=== PATIENT | male | born 1980 | race African-American/Black ===

== ENCOUNTER 2016-04-17 09:09 | Emergency (ER) ==
[2016-04-17 09:14] VITALS: TEMP 99.5; BMI 27.1
[2016-04-17] MEDS ORDERED: SODIUM CHLORIDE 1,000 ML IV STA (09:25)
[2016-04-17] MEDS ORDERED: ZOFRAN 4 MG/2 ML IVP STA (09:31)
[2016-04-17] MEDS ORDERED: ANTIVERT PO STA (09:31)
--- NOTE | 2016-04-17 09:44 | ED.PDOC ---
General ED Provider: Dr. KRISTEN RILEY Chief Complaint: Respiratory Complaint Stated Complaint: Catie is a 35 year old male who comes to the ER with a 2 day history of Sinus conjestion, headache, dizziness for the past 2 days. He thinks he has a sinus infection. Time Seen by Physician: 09:30 Mode of Arrival: Walk-In Information Source: Patient Exam Limitations: No limitations Primary Care Provider: ERICH ART Nursing and Triage Documentation Reviewed and Agree: Yes Neurological Complaint Exam - Dizziness Complaint/Exam Last Known Well: 3 days ago Duration: constant Symptoms Are: Still present Timing: Constant Initial Severity: Moderate Current Severity: Moderate Character: Reports: Room spinning Aggravating: Reports: Headache, Position change Associated Signs and Symptoms: Reports: Nausea. Denies: Vomiting, Diaphoresis, Tinnitus, Chest pain, Short of air, Palpitations, Unsteady gait, GI blood loss, Visual changes, Decreased oral intake, Change in medication, Change in diet, OTC meds, Loss of balance Cardiac Risk Factors: Reports: Hypertension CVA Risk Factors: Reports: None Glascow Coma Scale (see protocol): 15 Nystagmus Present: No Gag Reflex Present: No Meningeal Signs Positive: No Focal Weakness: Present: None Focal Sensory Loss: Present: None Gait: Normal Aniyon-rn-Aima: Normal Findings Romberg Test Positive: No Babinski Sign: Negative Right, Negative Left Heel to Toe Normal: No [place]-Hallpike Test Positive: Yes Differential Diagnoses: BPPV, Labyrinthitis, Other (sinusitis ) Quality Indicator For Non-Traumatic Chest Pain/Syncope: EKG Performed Review of Systems - Review Of Systems Constitutional: Reports: Weakness, Loss of appetite Eyes: Reports: No symptoms Ears, Nose, Mouth, Throat: Reports: Nose discharge, Throat pain Respiratory: Reports: Cough Cardiac: Reports: Lightheadedness GI: Reports: No symptoms : Reports: No symptoms Musculoskeletal: Reports: No symptoms Skin: Reports: No symptoms Neurological: Reports: Headache Endocrine: Reports: No symptoms Hematologic/Lymphatic: Reports: No symptoms All Other Systems: Reviewed and Negative Past Medical History - Past Medical History Previously Healthy: Yes Endocrine: Reports: None Cardiovascular: Reports: Hypertension Respiratory: Reports: None Hematological: Reports: None Gastrointestinal: Reports: None Genitourinary: Reports: None Neuro/Psych: Reports: None Musculoskeletal: Reports: None Cancer: Reports: None - Surgical History General Surgical History: Reports: Unknown - Family History Family History: Reports: Unknown - Social History Smoking Status: Never smoker Hx Substance Use: No Alcohol Screening: None Physical Exam - Physical Exam Appearance: Ill-appearing, Well-nourished Ill-appearing: Moderate Pain Distress: Mild Eyes: ELLI, EOMI, Conjunctiva clear ENT: Ears normal, Oropharynx normal, Dry mucosa Neck: Supple Respiratory: Airway patent, Breath sounds clear, Breath sounds equal, Respirations nonlabored Cardiovascular: RRR, Pulses normal, No rub, No murmur GI/: Soft, Nontender, No masses, Bowel sounds normal, No Organomegaly Musculoskeletal: Normal strength, ROM intact, No edema, No calf tenderness Skin: Warm, Dry, Normal color Neurological: Sensation intact, Motor intact, Alert, Oriented Psychiatric: Anxious Interpretation - Radiology Interpretation Radiology Interpretation By: Radiologist Radiology Results: Positive Exam Interpreted: CT Scan (Minor Maxillary Sinus Mucoperiosteal Thickening. ) Critical Care Note - Critical Care Note Total Time (mins): 0 Course - Course Hematology/Chemistry: 04/17/16 09:45 04/17/16 09:45 Orders, Labs, Meds: Lab Review 04/17/16 09:45 WBC 5.31 RBC 5.70 Hgb 15.5 Hct 45.9 MCV 80.5 MCH 27.2 MCHC 33.8 RDW Coeff of Randy 13.2 Plt Count 243 Immature Gran % (Auto) 0.4 Neut % (Auto) 76.5 Lymph % (Auto) 9.6 L Nelson % (Auto) 7.2 Eos % (Auto) 5.5 Baso % (Auto) 0.8 Immature Gran # (Auto) 0.0 Neut # 4.1 Lymph # 0.5 L Nelson # 0.4 Eos # 0.3 Baso # 0.0 Sodium 139 Potassium 4.1 Chloride 101 Carbon Dioxide 27 Anion Gap 15.1 BUN 12 Creatinine 1.43 H Estimated GFR (MDRD) 67.00 BUN/Creatinine Ratio 8.39 Glucose 117 H Calcium 9.9 Total Bilirubin 0.76 AST 26 ALT 17 Alkaline Phosphatase 98 Total Creatine Kinase 752 CK-MB (CK-2) 1.8 CK-MB (CK-2) % 0.65615 Troponin I 0.0160 Total Protein 8.3 H Albumin 4.6 Globulin 3.7 Albumin/Globulin Ratio 1.24 Orders Category Date Time Status EKG-(ED ONLY) Stat CARDIO 04/17/16 09:41 Completed ED IV/MEDIPORT/POWERPORT .ONCE EMERGENCY 04/17/16 09:25 Active ED ORTHOSTATIC VITAL SIGNS .ONCE EMERGENCY 04/17/16 09:25 Active CBC W/ AUTO DIFF Stat LAB 04/17/16 09:45 Completed COMPREHENSIVE METABOLIC PANEL Stat LAB 04/17/16 09:45 Completed CREATINE KINASE Stat LAB 04/17/16 09:45 Completed TROPONIN I Stat LAB 04/17/16 09:45 Completed 0.9 % Sodium Chloride [Saline Flush] MEDS 04/17/16 09:25 Discontinued 1 syr IVF PRN PRN Amoxicillin/Potassium Clav [Augmentin 875-125 mg Tab] MEDS 04/17/16 10:20 Discontinued 1 tab PO ONCE STA Meclizine HCl [Antivert] MEDS 04/17/16 09:31 Discontinued 25 mg PO ONCE STA Methylprednisolone Sod Succ/Pf [Solu-Medrol 125 mg] MEDS 04/17/16 10:19 Discontinued 125 mg IVP ONCE STA Ondansetron HCl/Pf [Zofran 4 mg/2 ml] MEDS 04/17/16 09:31 Discontinued 4 mg IVP ONCE STA Sodium Chloride 0.9% [Sodium Chloride] 1,000 ml MEDS 04/17/16 09:25 Discontinued IV BOLUS CHEST, 2 VIEWS PA & LAT Stat RADS 04/17/16 09:[address] HEAD W/O CONTRAST Stat RADS 04/17/16 09:[address] SINUSES W/O CONTRAST Stat RADS 04/17/16 09:31 Completed Medications Discontinued Medications Generic Name Dose Route Start Last Admin Trade Name Freq PRN Reason Stop Dose Admin Amoxicillin/Clavulanate Potassium 1 tab 04/17/16 10:20 04/17/16 10:34 Augmentin 875-125 Mg Tab PO 04/17/16 10:21 1 tab ONCE STA Administration Sodium Chloride 1,000 mls @ 1,000 mls/hr 04/17/16 09:25 04/17/16 10:00 Sodium Chloride IV 04/17/16 10:24 1,000 mls/hr BOLUS STA Administration Meclizine HCl 25 mg 04/17/16 09:31 04/17/16 10:06 Antivert PO 04/17/16 09:32 25 mg ONCE STA Administration Methylprednisolone Sodium Succinate 125 mg 04/17/16 10:19 04/17/16 10:33 Solu-Medrol 125 Mg IVP 04/17/16 10:20 125 mg ONCE STA Administration Ondansetron HCl 4 mg 04/17/16 09:31 04/17/16 10:05 Zofran 4 Mg/2 Ml IVP 04/17/16 09:32 4 mg ONCE STA Administration Sodium Chloride 1 syr 04/17/16 09:25 04/17/16 10:00 Saline Flush IVF 1 syr PRN PRN Administration To flush IV Vital Signs: Temp Pulse Resp BP Pulse Ox 04/17/16 11:20 88 16 125/82 97 04/17/16 10:21 88 146/99 H 04/17/16 10:20 84 129/90 04/17/16 09:09 99.5 F 102 H 20 138/91 H 97 Departure - Departure Time of Disposition: 11:20 Disposition: HOME SELF-CARE Discharge Problem: Vertigo Sinusitis Qualifiers: Sinusitis location: frontal Chronicity: acute Recurrence: non-recurrent Qualifier Code: (J01.10) Acute frontal sinusitis, unspecified Instructions: Sinusitis (ED) Condition: Fair Pt referred to PMD for follow-up: Yes Additional Instructions: Follow up with PCP in 3 days Take Medications as prescribed Prescriptions: Amoxicillin/Potassium Clav [Augmentin 500-125 mg Tab] 1 tab PO Q8HR #30 tablet Meclizine HCl [Antivert] 25 mg PO TID PRN #15 tablet PRN Reason: Dizziness Allergies/Adverse Reactions: Allergies No Known Allergies Allergy (Verified 04/17/16 09:14) Home Medications: Ambulatory Orders Amoxicillin/Potassium Clav [Augmentin 500-125 mg Tab] 1 tab PO Q8HR #30 tablet 04/17/16 Meclizine HCl [Antivert] 25 mg PO TID PRN #15 tablet 04/17/16 Disposition Discussed With: Patient
[2016-04-17 09:56] LABS: BASOPHILS % (AUTO) 0.8 % (0.0-3.0); EOSINOPHILS # (AUTO) 0.3 K/ul (0.0-0.7); EOSINOPHILS % (AUTO) 5.5 % (0.0-7.0); HEMATOCRIT 45.9 % (42.0-52.0); HEMOGLOBIN 15.5 g/dl (14.0-18.0); IMMATURE GRANULOCYTE % (AUTO) 0.4 % (0.0-5.0); LYMPHOCYTES # (AUTO) 0.5 K/uL (0.60-3.4); LYMPHOCYTES % (AUTO) 9.6 (10.0-50.0); MEAN CORPUSCULAR HEMOGLOBIN 27.2 pg (27.0-31.0); MEAN CORPUSCULAR HGB CONC 33.8 (31.8-35.4); MEAN CORPUSCULAR VOLUME 80.5 fl (80.0-94.0); MONOCYTES # (AUTO) 0.4 K/uL (0.4-2.0); MONOCYTES % (AUTO) 7.2 (0-10); NEUTROPHILS # (AUTO) 4.1 K/ul (2.0-6.9); NEUTROPHILS % (AUTO) 76.5; PLATELET COUNT 243 10^3/uL (140-440); WHITE BLOOD COUNT 5.31 K/ul (4.2-10.2)
--- NOTE | 2016-04-17 09:59 | CT ---
EXAM: CT head without contrast HISTORY: Headache COMPARISON: None. TECHNIQUE: Helical axial CT of the head was performed without contrast. Coronal and sagittal reconst ructions were performed. FINDINGS: There is no hemorrhage, mass, midline shift, abnormal extra-axial fluid collection, hydrocephalus or evolving ischemia. The humphrey-white matter junction is well maintained. Brain parenchyma ventricles and sulci are normal. There are no acute calvarial lesions. Visualized orbits and globes are unremarkable. The mastoid a ir cells demonstrate no significant soft tissue opacification. The visualized paranasal sinuses show no air-fluid levels. IMPRESSION: No acute intracranial abnormality.
--- NOTE | 2016-04-17 10:00 | CT ---
Exam: CT sinuses without contrast History: Sinus pain mostly on the right Technique: [address] sinuses with multiplanar reformations FINDINGS: Paranasal sinuses are mostly clear. Minor mucoperiosteal thickening in the floor the rig ht maxillary sinus. Nasal airway shows some mucosal hypertrophy. Minor mucosal thickening narrowing the right draining sinus ostia. Left draining sinus ostia is clear. Orbits are normal. Zygoma and nasal bones are intact. Mastoid air cells and middle ears are clear. No significant soft tissue a bnormalities are seen. Impression: 1. Minor right maxillary sinus mucoperiosteal thickening. There is no sinus fluid.
--- NOTE | 2016-04-17 10:00 | DI ---
EXAM: Chest two views HISTORY: Cough FINDINGS: Normal cardiac and mediastinal contours. Normal pulmonary vasculature. Lungs are clear. No significant abnormality of the bony thorax. IMPRESSION: Chest radiograph within normal limits.
[2016-04-17] MEDS ORDERED: SOLU-MEDROL 125 MG IVP STA (10:19)
[2016-04-17] MEDS ORDERED: AUGMENTIN 875-125 MG TAB PO STA (10:20)
[2016-04-17 10:31] LABS: ALBUMIN 4.6 g/dL (3.4-5.0); ALBUMIN/GLOBULIN RATIO 1.24; ANION GAP 15.1; BILIRUBIN,TOTAL 0.76 mg/dL (0.00-1.20); BUN/CREATININE RATIO 8.39; CALCIUM 9.9 mg/dL (8.2-10.2); CREATININE 1.43 mg/dL (0.60-1.10); POTASSIUM 4.1 mmol/L (3.5-5.1); TOTAL PROTEIN 8.3 g/dL (6.4-8.2); TROPONIN I 0.016 ng/ml (0.0000-0.4000)
[2016-04-17 10:56] LABS: CREATINE KINASE MB 1.8 ng/ml (0.0-3.6)
[2016-04-17 11:37] VITALS: BP 125/82
== END 2016-04-17 11:30 | disposition home or self-care (01) ==
LOC: ED 09:09
DX: J01.10 Acute frontal sinusitis, unspecified (principal); R42 Dizziness and giddiness
CPT/HCPCS: 36415; 80053; 82550; 82553; 84484; 85025; 93005; 93010; 96361; 96374; 96375; 99283

== ENCOUNTER 2016-06-23 20:29 | Emergency (ER) ==
[2016-06-23 20:33] VITALS: BP 154/93; TEMP 98; BMI 27.0
--- NOTE | 2016-06-23 20:45 | ED.PDOC ---
General ED Provider: Dr. AUBREY WALTON Chief Complaint: Urinary Problem Stated Complaint: Increase frequency of urination 10-15 times today, had h/o prostatitis, but this time no pain. Time Seen by Physician: 20:42 Mode of Arrival: Walk-In Information Source: Patient Primary Care Provider: ERICH ART Nursing and Triage Documentation Reviewed and Agree: Yes Complaint Exam - Complaint/Exam Patient Complains of: Reports: Dysuria Symptoms Are: Still present Timing: Constant Initial Severity: Mild Current Severity: Mild Location of Pain: Reports: None Aggravating: Reports: None Alleviating: Reports: None Associated Signs and Symptoms: Reports: Increased urine frequency. Denies: Diaphoresis, Back pain, Fever, Hematuria, Dysuria, Constipation, Blood in stool , Rectal pain, Appetite change, Nausea, Vomiting, Penile swelling, Penile discharge, Decreased urine output, Increased thirst, Decreased activity, Lethargy, Scrotal pain, Scrotal swelling, Abdominal Pain Related History: Reports: Similar episode Testicular Torsion Risk Factors: Reports: None Surgical Obstruction Risk Factors: Reports: None Related Surgical History: Reports: None Abdominal Findings: Present: None Differential Diagnoses: UTI Review of Systems - Review Of Systems Constitutional: Reports: No symptoms Eyes: Reports: No symptoms Ears, Nose, Mouth, Throat: Reports: No symptoms Respiratory: Reports: No symptoms Cardiac: Reports: No symptoms GI: Reports: No symptoms : Reports: Burning, Dysuria, Frequency Musculoskeletal: Reports: No symptoms Skin: Reports: No symptoms Neurological: Reports: No symptoms Endocrine: Reports: No symptoms Hematologic/Lymphatic: Reports: No symptoms All Other Systems: Reviewed and Negative Past Medical History - Past Medical History Previously Healthy: Yes Endocrine: Reports: None Cardiovascular: Reports: Hypertension Respiratory: Reports: None Hematological: Reports: None Gastrointestinal: Reports: None Genitourinary: Reports: Other (prostatitis) Neuro/Psych: Reports: None Musculoskeletal: Reports: None Cancer: Reports: None - Surgical History General Surgical History: Reports: Other (rt bicep repair.) - Family History Family History: Reports: Unknown - Social History Smoking Status: Never smoker Hx Substance Use: No Alcohol Screening: None Physical Exam - Physical Exam Appearance: Well-appearing, No pain distress, Well-nourished Eyes: ELLI, EOMI, Conjunctiva clear ENT: Ears normal, Nose normal, Oropharynx normal Respiratory: Airway patent, Breath sounds clear, Breath sounds equal, Respirations nonlabored Cardiovascular: RRR, Pulses normal, No rub, No murmur GI/: Soft, Nontender, No masses, Bowel sounds normal, No Organomegaly Musculoskeletal: Normal strength, ROM intact, No edema, No calf tenderness Skin: Warm, Dry, Normal color Neurological: Sensation intact, Motor intact, Reflexes intact, Cranial nerves intact, Alert, Oriented Psychiatric: Affect appropriate, Mood appropriate Critical Care Note - Critical Care Note Total Time (mins): 0 Course - Course Hematology/Chemistry: 06/23/16 20:48 06/23/16 20:48 Orders, Labs, Meds: Lab Review 06/23/16 06/23/16 20:40 20:48 WBC 5.30 RBC 5.00 Hgb 13.7 L Hct 39.8 L MCV 79.6 L MCH 27.4 MCHC 34.4 RDW Coeff of Randy 13.3 Plt Count 250 Immature Gran % (Auto) 0.4 Neut % (Auto) 67.1 Lymph % (Auto) 21.3 [place] % (Auto) 8.9 Eos % (Auto) 1.7 Baso % (Auto) 0.6 Immature Gran # (Auto) 0.0 Neut # 3.6 Lymph # 1.1 [place] # 0.5 Eos # 0.1 Baso # 0.0 Sodium 139 Potassium 3.6 Chloride 105 Carbon Dioxide 25 Anion Gap 12.6 BUN 13 Creatinine 1.11 H Estimated GFR (MDRD) 90.00 BUN/Creatinine Ratio 11.71 Glucose 122 H Calcium 9.6 Total Bilirubin 0.42 AST 21 ALT 20 Alkaline Phosphatase 67 Total Protein 7.5 Albumin 4.1 Globulin 3.4 Albumin/Globulin Ratio 1.21 Urine Color Yellow Urine Clarity Clear Urine pH 7.0 Ur Specific [place] 1.020 Urine Protein Negative Urine Glucose (UA) Negative Urine Ketones Negative Urine Blood Trace-intact Urine Nitrite Negative Urine Bilirubin Negative Urine Urobilinogen 0.2 Ur Leukocyte Esterase Negative Urine Microscopic RBC 0-2 Ur Squamous Epith Cells Not present Amorphous Sediment 1+ Urine Bacteria Trace Orders Category Date Time Status CBC W/ AUTO DIFF Stat LAB 06/23/16 20:48 Completed CMP [COMPREHENSIVE METABOLIC PANEL] Stat LAB 06/23/16 20:48 Completed UA [URINALYSIS C & S IF INDICATED] Stat LAB 06/23/16 20:40 Completed Vital Signs: Temp Pulse Resp BP Pulse Ox 06/23/16 20:29 98.0 F 84 18 154/93 H 97 Departure - Departure Time of Disposition: 21:27 Disposition: HOME SELF-CARE Discharge Problem: Urinary symptoms Instructions: Polyuria (ED) Condition: Stable Pt referred to PMD for follow-up: Yes Additional Instructions: Increase hydration needs evelaution for the dm f/u at [facility] Prescriptions: Doxycycline Hyclate 100 mg PO Q12HR #10 capsule Allergies/Adverse Reactions: Allergies No Known Allergies Allergy (Verified 06/23/16 20:34) Home Medications: Ambulatory Orders Doxycycline Hyclate 100 mg PO Q12HR #10 capsule 06/23/16 Disposition Discussed With: Patient
[2016-06-23 20:49] LABS: BASOPHILS % (AUTO) 0.6 % (0.0-3.0); EOSINOPHILS # (AUTO) 0.1 K/ul (0.0-0.7); EOSINOPHILS % (AUTO) 1.7 % (0.0-7.0); HEMATOCRIT 39.8 % (42.0-52.0); HEMOGLOBIN 13.7 g/dl (14.0-18.0); IMMATURE GRANULOCYTE % (AUTO) 0.4 % (0.0-5.0); LYMPHOCYTES # (AUTO) 1.1 K/uL (0.60-3.4); LYMPHOCYTES % (AUTO) 21.3 (10.0-50.0); MEAN CORPUSCULAR HEMOGLOBIN 27.4 pg (27.0-31.0); MEAN CORPUSCULAR HGB CONC 34.4 (31.8-35.4); MEAN CORPUSCULAR VOLUME 79.6 fl (80.0-94.0); MONOCYTES # (AUTO) 0.5 K/uL (0.4-2.0); MONOCYTES % (AUTO) 8.9 (0-10); NEUTROPHILS # (AUTO) 3.6 K/ul (2.0-6.9); NEUTROPHILS % (AUTO) 67.1; PLATELET COUNT 250 10^3/uL (140-440)
[2016-06-23 20:51] LABS: BILIRUBIN,URINE Negative (NEGATIVE); KETONES,URINE Negative (NEGATIVE); LEUKOCYTE ESTERASE ,URINE Negative (NEGATIVE); NITRITE,URINE Negative (NEGATIVE); PROTEIN,URINE Negative (NEGATIVE); URINE, BLOOD Trace-intact (NEGATIVE)
[2016-06-23 20:56] LABS: ADD URINE MICROSCOPIC YES; BACTERIA,URINE TRACE (NOT PRESENT)
[2016-06-23 21:08] LABS: ALBUMIN 4.1 g/dL (3.4-5.0); ALBUMIN/GLOBULIN RATIO 1.21; ANION GAP 12.6; BILIRUBIN,TOTAL 0.42 mg/dL (0.00-1.20); BUN/CREATININE RATIO 11.71; CALCIUM 9.6 mg/dL (8.2-10.2); CREATININE 1.11 mg/dL (0.60-1.10); POTASSIUM 3.6 mmol/L (3.5-5.1); TOTAL PROTEIN 7.5 g/dL (6.4-8.2)
== END 2016-06-23 21:40 | disposition home or self-care (01) ==
LOC: ED 20:29
DX: R35.0 Frequency of micturition (principal); R30.0 Dysuria
CPT/HCPCS: 36415; 80053; 81001; 85025; 99283

== ENCOUNTER 2016-11-11 22:13 | Emergency (ER) ==
[2016-11-11 22:20] VITALS: TEMP 97.5; BMI 26.4
[2016-11-11] MEDS ORDERED: DEMEROL 50 MG/ML SYRINGE IM STA (22:27)
[2016-11-11] MEDS ORDERED: AMOXIL PO STA (22:27)
[2016-11-11] MEDS ORDERED: TORADOL IM STA (22:27)
[2016-11-11] MEDS ORDERED: PHENERGAN 25 MG/ML VIAL IM STA (22:27)
--- NOTE | 2016-11-11 22:33 | ED.PDOC ---
General ED Provider: Dr. KRISTEN RILEY Chief Complaint: Tooth Problem Stated Complaint: Patient states he has been having dental pain for two hours. Severe in intenisty, aching and throbing. He was told that he cannot see his dentist for 2 weeks Time Seen by Physician: 22:30 Mode of Arrival: Walk-In Information Source: Patient Exam Limitations: No limitations Primary Care Provider: ERICH ART Nursing and Triage Documentation Reviewed and Agree: Yes EENT Complaint Exam - Dental/Oral Complaint/Exam Mechanism of Injury: No known trauma Onset/Duration: 2 hours Symptoms Are: Still present Timing: Constant Initial Severity: Severe Current Severity: Severe Location: Right lower jaw pain Character: Reports: Aching, Throbbing Aggravating: Reports: Heat, Cold, Chewing Alleviating: Reports: None Associated Signs and Symptoms: Reports: Swelling (right neck ) Related History: Reports: Similar episode Cardiac Risk Factors: Reports: None Dental/Oral Surgical History: Reports: Third Molar Extractions Tooth Findings: Present: Gross decay, Gross caries, Dental fracture Cervical Lymphadenopathy Present: Yes Facial Swelling Present: No Bleeding Present: No Oropharynx Findings: Absent: Clots, Active bleeding Septal Hematoma: No Foreign Body Present: No Dysphagia Present: No Drooling Present: No Asymmetrical Tonsillar Swelling Present: No Uvula Midline: No [place]-tonsillar Fluctuence: No Trismus Present: No Palatal Petechiae Present: No Scarlatinaform Rash Present: No Teeth Picture: 1 - Fracture and decay 2 - extracted Review of Systems - Review Of Systems Constitutional: Reports: No symptoms Eyes: Reports: No symptoms Ears, Nose, Mouth, Throat: Reports: Mouth pain, Mouth swelling Respiratory: Reports: No symptoms Cardiac: Reports: No symptoms GI: Reports: No symptoms : Reports: No symptoms Musculoskeletal: Reports: No symptoms Skin: Reports: No symptoms Neurological: Reports: No symptoms Endocrine: Reports: No symptoms Hematologic/Lymphatic: Reports: No symptoms All Other Systems: Reviewed and Negative Past Medical History - Past Medical History Previously Healthy: Yes Endocrine: Reports: None Cardiovascular: Reports: Hypertension Respiratory: Reports: None Hematological: Reports: None Gastrointestinal: Reports: None Genitourinary: Reports: Other (prostatitis) Neuro/Psych: Reports: None Musculoskeletal: Reports: None Cancer: Reports: None - Surgical History General Surgical History: Reports: Other (rt bicep repair.) - Family History Family History: Reports: Unknown - Social History Smoking Status: Never smoker Hx Substance Use: No Alcohol Screening: Occasionally - Immunizations Tetanus Shot up to Date: Yes Physical Exam - Physical Exam Appearance: No pain distress Ill-appearing: Moderate Pain Distress: Severe Eyes: ELLI, EOMI, Conjunctiva clear ENT: Ears normal, Nose normal, Oropharynx normal Neck: Supple Respiratory: Airway patent, Breath sounds clear, Breath sounds equal, Respirations nonlabored Cardiovascular: RRR, Pulses normal, No rub, No murmur GI/: Soft, Nontender, No masses, Bowel sounds normal, No Organomegaly Musculoskeletal: Normal strength, ROM intact, No edema, No calf tenderness Skin: Warm, Dry, Normal color Neurological: Sensation intact, Motor intact, Reflexes intact, Cranial nerves intact, Alert, Oriented Psychiatric: Affect appropriate, Mood appropriate Critical Care Note - Critical Care Note Total Time (mins): 0 Course - Course Orders, Labs, Meds: Orders Category Date Time Status Amoxicillin [Amoxil] MEDS 11/11/16 22:27 Stat 500 mg PO ONCE STA Ketorolac Tromethamine [Toradol] MEDS 11/11/16 22:27 Stat 60 mg IM ONCE STA Meperidine HCl/Pf [Demerol 50 mg/ml Syringe] MEDS 11/11/16 22:27 Stat 50 mg IM ONCE STA Promethazine HCl [Phenergan 25 mg/ml Vial] MEDS 11/11/16 22:27 Stat 25 mg IM ONCE STA Medications Generic Name Dose Route Start Last Admin Trade Name Freq PRN Reason Stop Dose Admin Amoxicillin 500 mg 11/11/16 22:27 Amoxil PO 11/11/16 22:28 ONCE STA Ketorolac Tromethamine 60 mg 11/11/16 22:27 Toradol IM 11/11/16 22:28 ONCE STA Vital Signs: Temp Pulse Resp BP Pulse Ox 11/11/16 22:14 97.5 F L 71 20 180/116 H 97 Departure - Departure Time of Disposition: 22:44 Disposition: HOME SELF-CARE Discharge Problem: Toothache, Dental abscess, Elevated blood pressure reading Instructions: Dental Abscess (ED) Condition: Fair Pt referred to PMD for follow-up: Yes Additional Instructions: Follow up with your dentist in 3 days Take medications as prescribed. Prescriptions: Hydrocodone/Acetaminophen [Anderson 5-325 Tablet] 1 tab PO Q6HR PRN #12 tablet PRN Reason: PAIN Amoxicillin [Amoxil] 500 mg PO TID #30 capsule Ibuprofen [Motrin] 600 mg PO Q6H PRN #30 tablet PRN Reason: Analgesia Allergies/Adverse Reactions: Allergies No Known Allergies Allergy (Verified 11/11/16 22:20) Home Medications: Ambulatory Orders Doxycycline Hyclate 100 mg PO Q12HR #10 capsule 06/23/16 Amoxicillin [Amoxil] 500 mg PO TID #30 capsule 11/11/16 Hydrocodone/Acetaminophen [Anderson 5-325 Tablet] 1 tab PO Q6HR PRN #12 tablet Ibuprofen [Motrin] 600 mg PO Q6H PRN #30 tablet 11/11/16 Disposition Discussed With: Patient
[2016-11-11] MEDS ORDERED: ED AFTER HOURS SUPPLY MED SENT HOME PO ONE (22:51)
[2016-11-11 23:02] VITALS: BP 175/101
== END 2016-11-12 00:15 | disposition home or self-care (01) ==
LOC: ED 22:13
DX: K04.7 Periapical abscess without sinus (principal); I10 Essential (primary) hypertension
CPT/HCPCS: 96372; 99283

== ENCOUNTER 2017-05-30 21:35 | Emergency (ER) | payer OTHER ==
[2017-05-30] MEDS ORDERED: LOPRESSOR PO STA (21:49)
[2017-05-30] MEDS ORDERED: PROCARDIA XL PO STA (21:49)
[2017-05-30 21:56] VITALS: BP 161/101; TEMP 100.3; BMI 25.6
--- NOTE | 2017-05-30 22:41 | CT ---
EXAM: CT head without contrast 05/30/2017. Sagittal and coronal reformatted images obtained HISTORY: Dizziness COMPARISON: 04/17/2016 FINDINGS: There is no evidence of intracranial hemorrhage. The midline is maintained. There is no h ydrocephalus. Mild small vessel ischemic change. No cerebellar tonsillar ectopia. Evaluation of th e calvarium shows no fracture. The mastoid air cells are normally pneumatized. IMPRESSION: No acute intracranial abnormality.
--- NOTE | 2017-05-30 23:42 | ED.PDOC ---
General ED Provider: Dr. CASSANDRA WAGNER-ER Chief Complaint: Dizziness Stated Complaint: her bp is up ----i have a sinus infection Time Seen by Physician: 21:50 Mode of Arrival: Walk-In Information Source: Patient Exam Limitations: No limitations Nursing and Triage Documentation Reviewed and Agree: Yes Reviewed sepsis parameters & appropriate labs ordered?: Yes System Inflammatory Response Syndrome: Not Applicable Sepsis Protocol: For patient's 13 years and over: Temp is 96.8 and below OR 101 and greater Pulse >90 BPM Resp >20/minute Acutely Altered Mental Status Are patient's symptoms suggestive of a new infection, such as: -Pneumonia -Skin, Soft Tissue -Endocarditis -UTI -Bone, Joint Infection -Implantable Device -Acute Abdominal Infection -Wound Infection -Meningitis -Blood Stream Catheter Infection -Unknown Cardiovascular Complaint Exam - Hypertension Complaint/Exam Onset/Duration: 3 days Symptoms Are: Still present Timing: Constant Aggravating: Reports: None Alleviating: Reports: None Associated Signs and Symptoms: Denies: Chest pain, Vision changes, Anxiety, Recent stress, Headache, Numbness, Tingling, Dizziness, Short of air, Swelling Related Surgical History: Reports: None Cardiac Risk Factors: Reports: None Recent Change in Medications: No A/V [place]: No Papilledema Present: No JVD Present: No Carotid Bruit Present: No Femoral Pulses Bounding: Yes Differential Diagnoses: Hypertension, Other Quality Indicator For Non-Traumatic Chest Pain/Syncope: EKG Performed Review of Systems - Review Of Systems Constitutional: Reports: Chills, Fever Eyes: Reports: No symptoms Ears, Nose, Mouth, Throat: Reports: Nose discharge Respiratory: Reports: No symptoms Cardiac: Reports: No symptoms GI: Reports: No symptoms : Reports: No symptoms Musculoskeletal: Reports: No symptoms Skin: Reports: No symptoms Neurological: Reports: No symptoms Endocrine: Reports: No symptoms Hematologic/Lymphatic: Reports: No symptoms All Other Systems: Reviewed and Negative Past Medical History - Past Medical History Previously Healthy: Yes Endocrine: Reports: None Cardiovascular: Reports: Hypertension Respiratory: Reports: None Hematological: Reports: None Gastrointestinal: Reports: None Genitourinary: Reports: Other (prostatitis) Neuro/Psych: Reports: None Musculoskeletal: Reports: None Cancer: Reports: None - Surgical History General Surgical History: Reports: Other (rt bicep repair.) - Family History Family History: Reports: Unknown - Social History Smoking Status: Never smoker Hx Substance Use: No Alcohol Screening: None - Immunizations Tetanus Shot up to Date: Yes Physical Exam - Physical Exam Appearance: Well-appearing, No pain distress, Well-nourished Eyes: ELLI, EOMI, Conjunctiva clear ENT: Rhinorrhea Neck: Supple Respiratory: Airway patent Cardiovascular: RRR, Pulses normal, No rub, No murmur GI/: Soft, Nontender, No masses, Bowel sounds normal, No Organomegaly Musculoskeletal: Normal strength, ROM intact, No edema, No calf tenderness Skin: Warm Neurological: Sensation intact Psychiatric: Affect appropriate, Mood appropriate Interpretation - Radiology Interpretation Radiology Interpretation By: Radiologist Radiology Results: Negative Exam Interpreted: CT Scan - EKG Interpretation Time of EKG #1: 23:41 Rate: Normal Rhythm: Sinus Ectopy: None [place]: NL ST Segment: Normal Interpretation: nsr Re-Evaluation - Re-Evaluation Time of Re-Evaluation: 23:42 Status: Improved (130/80) Vital Signs Stable: Yes Pain Level: 0 Appearance: NAD Lungs: Clear Skin: Warm and Dry Neuro: Alert and Oriented X3 CV: RRR Critical Care Note - Critical Care Note Total Time (mins): 0 Course - Course Hematology/Chemistry: 05/30/17 22:15 05/30/17 22:15 Orders, Labs, Meds: Lab Review 05/30/17 05/30/17 05/30/17 22:10 22:10 22:15 WBC 5.01 RBC 5.24 Hgb 14.4 Hct 42.2 MCV 80.5 MCH 27.5 MCHC 34.1 RDW Coeff of Randy 13.5 Plt Count 211 Immature Gran % (Auto) 0.4 Neut % (Auto) 61.6 Lymph % (Auto) 22.6 [place] % (Auto) 11.0 H Eos % (Auto) 3.6 Baso % (Auto) 0.8 Immature Gran # (Auto) 0.0 Neut # (Auto) 3.1 Lymph # (Auto) 1.1 [place] # (Auto) 0.6 Eos # (Auto) 0.2 Baso # (Auto) 0.0 Sodium Potassium Chloride Carbon Dioxide Anion Gap BUN Creatinine Estimated GFR (MDRD) BUN/Creatinine Ratio Glucose Calcium Total Bilirubin AST ALT Alkaline Phosphatase Total Creatine Kinase CK-MB (CK-2) CK-MB (CK-2) % Troponin I Total Protein Albumin Globulin Albumin/Globulin Ratio TSH Free T4 Urine Color Yellow Urine Clarity Slightly Urine pH 6.0 Ur Specific [place] 1.025 Urine Protein Negative Urine Glucose (UA) Negative Urine Ketones Trace Urine Blood Trace-lysed Urine Nitrite Negative Urine Bilirubin Negative Urine Urobilinogen 0.2 Ur Leukocyte Esterase 1+ Urine Microscopic RBC 0-2 Urine Microscopic WBC 10-20 Ur Squamous Epith Cells 0-2 Urine Opiates Screen Negative Ur Oxycodone Screen Negative Urine Methadone Screen Negative Ur Propoxyphene Screen Negative Ur Barbiturates Screen Negative U Tricyclic Antidepress Negative Ur Phencyclidine Scrn Negative Ur Amphetamine Screen Negative U Methamphetamines Scrn Negative U Benzodiazepines Scrn Negative Urine Cocaine Screen Negative U Cannabinoids Screen Negative 05/30/17 22:15 WBC RBC Hgb Hct MCV MCH MCHC RDW Coeff of Randy Plt Count Immature Gran % (Auto) Neut % (Auto) Lymph % (Auto) [place] % (Auto) Eos % (Auto) Baso % (Auto) Immature Gran # (Auto) Neut # (Auto) Lymph # (Auto) [place] # (Auto) Eos # (Auto) Baso # (Auto) Sodium 140 Potassium 4.0 Chloride 102 Carbon Dioxide 26 Anion Gap 16.0 BUN 13 Creatinine 1.21 H Estimated GFR (MDRD) 81.00 BUN/Creatinine Ratio 10.74 Glucose 93 Calcium 9.5 Total Bilirubin 0.4 AST 16 ALT 15 Alkaline Phosphatase 91 Total Creatine Kinase 251 CK-MB (CK-2) 1.3 CK-MB (CK-2) % 0.67957 Troponin I < 0.0100 Total Protein 7.9 Albumin 3.9 Globulin 4.0 Albumin/Globulin Ratio 0.98 TSH 0.992 Free T4 0.96 Urine Color Urine Clarity Urine pH Ur Specific [place] Urine Protein Urine Glucose (UA) Urine Ketones Urine Blood Urine Nitrite Urine Bilirubin Urine Urobilinogen Ur Leukocyte Esterase Urine Microscopic RBC Urine Microscopic WBC Ur Squamous Epith Cells Urine Opiates Screen Ur Oxycodone Screen Urine Methadone Screen Ur Propoxyphene Screen Ur Barbiturates Screen U Tricyclic Antidepress Ur Phencyclidine Scrn Ur Amphetamine Screen U Methamphetamines Scrn U Benzodiazepines Scrn Urine Cocaine Screen U Cannabinoids Screen Orders Category Date Time Status EKG-(ED ONLY) Stat CARDIO 05/30/17 21:36 Completed Devulcanizer Loader [ED MOTO MIX OPERATOR APPLIED] .ONCE EMERGENCY 05/30/17 21:40 Active CBC W/ AUTO DIFF Stat LAB 05/30/17 22:15 Completed COMPREHENSIVE METABOLIC PANEL Stat LAB 05/30/17 22:15 Completed CREATINE KINASE Stat LAB 05/30/17 22:15 Completed FREE T4 (FREE THYROXINE) Stat LAB 05/30/17 22:15 Completed THYROID STIMULATING HORMONE Stat LAB 05/30/17 22:15 Completed TROPONIN I Stat LAB 05/30/17 22:15 Completed URINALYSIS C & S IF INDICATED Stat LAB 05/30/17 22:10 Completed URINE CULTURE Stat LAB 05/30/17 22:45 Received URINE DRUG SCREEN (RAPID FOR ED) [DRUG SCREEN, URINE, LAB 05/30/17 22:10 Completed RAPID] Stat Metoprolol Tartrate [Lopressor] MEDS 05/30/17 21:49 Discontinued 50 mg PO ONCE STA Nifedipine [Procardia Xl] MEDS 05/30/17 21:49 Discontinued 60 mg PO ONCE STA CT HEAD W/O CONTRAST Stat RADS 05/30/17 21:37 Completed Medications Discontinued Medications Generic Name Dose Route Start Last Admin Trade Name Freq PRN Reason Stop Dose Admin Metoprolol Tartrate 50 mg 05/30/17 21:49 05/30/17 22:03 Lopressor PO 05/30/17 21:50 50 mg ONCE STA Administration Nifedipine 60 mg 05/30/17 21:49 05/30/17 22:03 Procardia Xl PO 05/30/17 21:50 60 mg ONCE STA Administration Vital Signs: Temp Pulse Resp BP Pulse Ox 05/30/17 21:49 100.3 F H 106 H 20 161/101 H 97 MAXWELL Risk Score MAXWELL Risk Score: Risk Score Odds of by 30D 0 0.1 (0.1-0.2) 1 0.3 (0.2-0.3) 2 0.4 (0.3-0.5) 3 0.7 (0.6-0.9) 4 1.2 (1.0-1.5) 5 2.2 (1.9-2.6) 6 3.0 (2.5-3.6) 7 4.8 (3.8-6.1) Departure - Departure Time of Disposition: 23:42 Disposition: HOME SELF-CARE Discharge Problem: Sinusitis Qualifiers: Sinusitis location: unspecified location Chronicity: acute Recurrence: non- recurrent Qualified Code(s): J01.90 - Acute sinusitis, unspecified Hypertension Qualifiers: Hypertension type: essential hypertension Qualified Code(s): I10 - Essential ( primary) hypertension Instructions: Chronic Hypertension (ED) Condition: Good Pt referred to PMD for follow-up: Yes IPMP verified?: No Additional Instructions: amoxil 500mg tid x 10 days--procardia xl 60mg #30--lopressor 25mg bid #60--f/u wtih pcp Allergies/Adverse Reactions: Allergies No Known Allergies Allergy (Verified 05/30/17 21:56) Home Medications: Ambulatory Orders 1 [No Reported Medications] 05/30/17 Disposition Discussed With: Patient, Family
== END 2017-05-30 23:55 | disposition home or self-care (01) ==
LOC: ED 21:35
DX: J01.90 Acute sinusitis, unspecified (principal); I10 Essential (primary) hypertension
CPT/HCPCS: 36415; 80053; 80306; 81001; 82550; 82553; 84439; 84443; 84484; 85025; 87086; 93005; 93010; 99283

== ENCOUNTER 2017-09-06 12:12 | Outpatient (CLI) | END 2017-09-06 12:13 | disposition home or self-care (01) | LOC: LAB 12:12 | PROVIDERS: ATTEND Emergency Medicine | DX: N40.1 Benign prostatic hyperplasia with lower urinary tract symptoms (principal); N52.9 Male erectile dysfunction, unspecified; R79.89 Other specified abnormal findings of blood chemistry | CPT/HCPCS: 36415; 83001; 83002; 84402; 84403 ==

== ENCOUNTER 2017-09-24 20:49 | Emergency (ER) | payer OTHER ==
[2017-09-24 21:03] VITALS: TEMP 98.3; BMI 25.1
[2017-09-24] MEDS ORDERED: DILAUDID 2 MG/ML SDV IM STA (21:07)
[2017-09-24] MEDS ORDERED: ZOFRAN 4 MG/2 ML IM STA (21:07)
[2017-09-24] MEDS ORDERED: CATAPRES PO STA (21:07)
--- NOTE | 2017-09-24 21:12 | ED.PDOC ---
General ED Provider: Dr. AUBREY WALTON Chief Complaint: Neck Pain Non-Injury Stated Complaint: Patient was christopher hogging for 4-5 hrs, than started with severe neck,hurts to move and bend the neck. ran out of BP medications Time Seen by Physician: 21:10 Mode of Arrival: Walk-In Information Source: Patient Primary Care Provider: AUBREY WALTON[facility] Nursing and Triage Documentation Reviewed and Agree: Yes Does patient meet sepsis criteria?: No If yes, has appropriate treatment been initiated?: No System Inflammatory Response Syndrome: Not Applicable Sepsis Protocol: For patient's 13 years and over: Temp is 96.8 and below OR 101 and greater Pulse >90 BPM Resp >20/minute Acutely Altered Mental Status Are patient's symptoms suggestive of a new infection, such as: -Pneumonia -Skin, Soft Tissue -Endocarditis -UTI -Bone, Joint Infection -Implantable Device -Acute Abdominal Infection -Wound Infection -Meningitis -Blood Stream Catheter Infection -Unknown Musculoskeletal Complaint Exam - Neck Pain Complaint/Exam Mechanism of Injury: Reports: No known trauma Symptoms Are: Still present Timing: Constant Episodes Lasting: Hours Initial Severity: Severe Current Severity: Severe Location: Reports: Discrete Character: Reports: Aching, Throbbing Aggravating: Reports: Movement Alleviating: Reports: None Associated Signs and Symptoms: Denies: Swelling, Redness, Bruising, Fever, Nuchal rigidity, Weakness, Headache, Paresthesia Related History: Reports: Similar episode Meningitis Risk Factors: Reports: None Cervical Spine Injury Risk Factors: Reports: None Related Surgical History: Reports: None Carotid Bruit Present: No Pain on Passive Flexion: Yes Positive Kernig's Sign: No ROM Limited In: Present: Flexion, Extension, Right, Left Tenderness: Present: Paraspinal Focal Weakness: Present: None Focal Sensory Loss: Reports: None Differential Diagnoses: Arthritis, Sprain Review of Systems - Review Of Systems Constitutional: Reports: No symptoms Eyes: Reports: No symptoms Ears, Nose, Mouth, Throat: Reports: No symptoms Respiratory: Reports: No symptoms Cardiac: Reports: No symptoms GI: Reports: No symptoms : Reports: No symptoms Musculoskeletal: Reports: Muscle stiffness, Neck pain Skin: Reports: No symptoms Neurological: Reports: No symptoms Endocrine: Reports: No symptoms Hematologic/Lymphatic: Reports: No symptoms All Other Systems: Reviewed and Negative Past Medical History - Past Medical History Previously Healthy: Yes Endocrine: Reports: None Cardiovascular: Reports: Hypertension Respiratory: Reports: None Hematological: Reports: None Gastrointestinal: Reports: None Genitourinary: Reports: Other (prostatitis) Neuro/Psych: Reports: None Musculoskeletal: Reports: None Cancer: Reports: None - Surgical History General Surgical History: Reports: Other (rt bicep repair.) - Family History Family History: Reports: Unknown - Social History Smoking Status: Never smoker Hx Substance Use: No Alcohol Screening: None - Immunizations Tetanus Shot up to Date: Yes Physical Exam - Physical Exam Appearance: Well-appearing Pain Distress: Severe Eyes: ELLI, EOMI, Conjunctiva clear ENT: Ears normal, Nose normal, Oropharynx normal Respiratory: Airway patent, Breath sounds clear, Breath sounds equal, Respirations nonlabored Cardiovascular: RRR, Pulses normal, No rub, No murmur GI/: Soft, Nontender, No masses, Bowel sounds normal, No Organomegaly Musculoskeletal: Normal strength, ROM intact, No edema, No calf tenderness Skin: Warm, Dry, Normal color Neurological: Sensation intact, Motor intact, Reflexes intact, Cranial nerves intact, Alert, Oriented Psychiatric: Affect appropriate, Mood appropriate Interpretation - Radiology Interpretation Radiology Interpretation By: Radiologist Radiology Results: Positive Exam Interpreted: CT Scan Re-Evaluation - Re-Evaluation Time of Re-Evaluation: 21:52 (169/106) Status: Improved Critical Care Note - Critical Care Note Total Time (mins): 30 Course - Course Orders, Labs, Meds: Orders Category Date Time Status Clonidine HCl [Catapres] MEDS 09/24/17 21:07 Discontinued 0.2 mg PO ONCE STA Hydromorphone HCl [Dilaudid 2 mg/ml Sdv] MEDS 09/24/17 21:07 Discontinued 1 mg IM ONCE STA Hydromorphone HCl/Pf [Dilaudid 2 mg/ml Syringe] MEDS 09/24/17 21:13 Discontinued 2 mg .ROUTE .STK-MED ONE Ondansetron HCl/Pf [Zofran 4 mg/2 ml] MEDS 09/24/17 21:07 Discontinued 4 mg IM ONCE STA CT CERVICAL SPINE W/O CONTRAST Stat RADS 09/24/17 21:07 Completed Medications Discontinued Medications Generic Name Dose Route Start Last Admin Trade Name Freq PRN Reason Stop Dose Admin Clonidine 0.2 mg 09/24/17 21:07 09/24/17 21:24 Catapres PO 09/24/17 21:08 0.2 mg ONCE STA Administration Hydromorphone HCl 1 mg 09/24/17 21:07 09/24/17 21:24 Dilaudid 2 Mg/Ml Sdv IM 09/24/17 21:08 1 mg ONCE STA Administration Ondansetron HCl 4 mg 09/24/17 21:07 09/24/17 21:24 Zofran 4 Mg/2 Ml IM 09/24/17 21:08 4 mg ONCE STA Administration Vital Signs: Temp Pulse Resp BP Pulse Ox 09/24/17 20:52 98.3 F 81 18 168/114 H 97 Departure - Departure Time of Disposition: 21:52 Disposition: HOME SELF-CARE Discharge Problem: Neck sprain Qualifiers: Encounter type: initial encounter Qualified Code(s): S13.9XXA - Sprain of joints and ligaments of unspecified parts of neck, initial encounter Instructions: Cervical Strain (ED) Condition: Stable Pt referred to PMD for follow-up: Yes IPMP verified?: No Additional Instructions: rest Hot pack Take medication with food f/u in office 3 days Prescriptions: Cyclobenzaprine HCl [Flexeril] 5 mg PO BID #14 tablet Hydrocodone/Acetaminophen [[place] 5-325 Tablet] 1 tab PO TID PRN #12 tablet PRN Reason: PAIN Metoprolol Tartrate 25 mg PO BID #30 tablet Nifedipine [Procardia Xl] 60 mg PO DAILY #20 tab.er.24 Allergies/Adverse Reactions: Allergies No Known Allergies Allergy (Verified 09/24/17 21:01) Home Medications: Ambulatory Orders Tamsulosin HCl [Flomax] 0.4 mg PO DAILY 09/06/17 Cyclobenzaprine HCl [Flexeril] 5 mg PO BID #14 tablet 09/24/17 Hydrocodone/Acetaminophen [[place] 5-325 Tablet] 1 tab PO TID PRN #12 tablet 09/24 Metoprolol Tartrate 25 mg PO BID #30 tablet 09/24/17 Nifedipine [Procardia Xl] 60 mg PO DAILY #20 tab.er.24 09/24/17 Disposition Discussed With: Patient
[2017-09-24] MEDS ORDERED: DILAUDID 2 MG/ML SYRINGE ONE (21:13)
--- NOTE | 2017-09-24 21:50 | CT ---
EXAM: CT scan cervical spine HISTORY: Pain COMPARISON: CT scan cervical spine 01/05/2016 FINDINGS: Contiguous axial images obtained through the cervical spine utilizing 2-mm collimation. S agittal and coronal reconstructions were imaged and reviewed. Marked degenerate disc disease is note d at C5-C6 and C6-C7. Facet joints are intact.. At C4-C5 spondylitic bulge mildly narrows the centra l canal. There is a right neural foraminal narrowing secondary to uncovertebral degenerative changes . C5-C6 spondylitic bulge narrows the AP dimension of central canal with bilateral neural foraminal narrowing. Similar changes noted at C6-C7. 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 Central canal and foraminal stenosis C5-C6 and C6-C7. Mild central canal and right neural foraminal narrowing C4-C5
[2017-09-24 21:52] VITALS: BP 169/106
== END 2017-09-24 22:00 | disposition home or self-care (01) ==
LOC: ED 20:49
DX: S13.9XXA Sprain of joints and ligaments of unspecified parts of neck, initial encounter (principal); I10 Essential (primary) hypertension; X50.1XXA Overexertion from prolonged static or awkward postures, initial encounter
CPT/HCPCS: 96372; 99283

== ENCOUNTER 2017-11-01 13:55 | Emergency (ER) ==
[2017-11-01 13:58] VITALS: BP 133/95; TEMP 98.7; BMI 25.4
--- NOTE | 2017-11-01 14:54 | ED.PDOC ---
General ED Provider: Dr. CASSANDRA AMBROSE Chief Complaint: Respiratory Complaint Stated Complaint: Weakness, malaise, fatigue, night sweats, facial tenderness cough and congestion. Time Seen by Physician: 14:30 Mode of Arrival: Walk-In Information Source: Patient Exam Limitations: No limitations [facility] and Triage Documentation Reviewed and Agree: Yes Does patient meet sepsis criteria?: No System Inflammatory Response Syndrome: Not Applicable Sepsis Protocol: For patient's 13 years and over: Temp is 96.8 and below OR 101 and greater Pulse >90 BPM Resp >20/minute Acutely Altered Mental Status Are patient's symptoms suggestive of a new infection, such as: -Pneumonia -Skin, Soft Tissue -Endocarditis -UTI -Bone, Joint Infection -Implantable Device -Acute Abdominal Infection -Wound Infection -Meningitis -Blood Stream Catheter Infection -Unknown Respiratory Complaint Exam - Respiratory Complaint/Exam Symptoms Are: Still present Timing: Intermittent Initial Severity: Moderate Current Severity: Moderate Location: Throat, Chest Character: Reports: Non-productive cough Aggravating: Reports: Recumbent position Alleviating: Reports: None Associated Signs and Symptoms: Reports: Sore throat Related History: Denies: Similar episode History of Healthcare-Acquired Pneumonia: No Related Surgical History: Reports: None Pulmonary Embolism Risk Factors: None Cardiac Risk Factors: Reports: None Pseudomonas Risk Factors: Reports: None Tuberculosis Risk Factors: Reports: None Home Oxygen Use: No Recent Stress Test: No Recent Echo/LV Function: No Current Antibiotic Use: No Current Asthma Medication Use: No Respiratory Distress: None Inadequate Respiratory Effort: No Dysphagia Present: No Stridor Present: No JVD Present: No Accessory Muscle Use: No Diminished Breath Sounds: No Sinus Tenderness: Maxillary Grunting Respirations: No Kussmaul Respirations: No Differential Diagnoses: Sinusitis Review of Systems - Review Of Systems Constitutional: Reports: No symptoms Eyes: Reports: No symptoms Ears, Nose, Mouth, Throat: Reports: No symptoms Respiratory: Reports: Cough Cardiac: Reports: No symptoms GI: Reports: No symptoms : Reports: No symptoms Musculoskeletal: Reports: No symptoms, Muscle pain (rt shoulder from neck), Muscle stiffness, Neck pain Skin: Reports: No symptoms Neurological: Reports: No symptoms Endocrine: Reports: No symptoms Hematologic/Lymphatic: Reports: No symptoms All Other Systems: Reviewed and Negative Past Medical History - Past Medical History Previously Healthy: Yes Endocrine: Reports: None Cardiovascular: Reports: Hypertension Respiratory: Reports: None Hematological: Reports: None Gastrointestinal: Reports: None Genitourinary: Reports: Other (prostatitis) Neuro/Psych: Reports: None Musculoskeletal: Reports: None Cancer: Reports: None - Surgical History General Surgical History: Reports: Other (rt bicep repair.) - Family History Family History: Reports: Unknown - Social History Smoking Status: Never smoker Hx Substance Use: No Alcohol Screening: None Physical Exam - Physical Exam Appearance: Well-appearing, No pain distress, Well-nourished Ill-appearing: Mild Pain Distress: None Eyes: ELLI, EOMI, Conjunctiva clear ENT: Ears normal, Nose normal, Oropharynx normal Respiratory: Airway patent, Breath sounds clear, Breath sounds equal, Respirations nonlabored Cardiovascular: RRR, Pulses normal, No rub, No murmur GI/: Soft, Nontender, No masses, Bowel sounds normal, No Organomegaly Musculoskeletal: Normal strength (spasm of Rt Cervical region into shoulder with tenderness/resolved with stretching), ROM intact, No edema, No calf tenderness Skin: Warm, Dry, Normal color Neurological: Sensation intact, Motor intact, Reflexes intact, Cranial nerves intact, Alert, Oriented Psychiatric: Affect appropriate, Mood appropriate Interpretation - Radiology Interpretation Radiology Interpretation By: Radiologist Exam Interpreted: CT Scan Xray Comments: sinusitis maxillary- improved Critical Care Note - Critical Care Note Total Time (mins): 0 Course - Course Hematology/Chemistry: 11/01/17 15:11 11/01/17 15:11 Orders, Labs, Meds: Lab Review 11/01/17 11/01/17 11/01/17 15:11 15:11 15:55 WBC 5.01 RBC 5.24 Hgb 14.3 Hct 42.1 MCV 80.3 MCH 27.3 MCHC 34.0 RDW Coeff of Randy 13.5 Plt Count 259 Immature Gran % (Auto) 0.4 Neut % (Auto) 49.7 Lymph % (Auto) 33.5 [place] % (Auto) 9.4 Eos % (Auto) 6.4 Baso % (Auto) 0.6 Immature Gran # (Auto) 0.0 Neut # (Auto) 2.5 Lymph # (Auto) 1.7 [place] # (Auto) 0.5 Eos # (Auto) 0.3 Baso # (Auto) 0.0 ESR 12 Sodium 139.3 Potassium 3.92 Chloride 99.5 Carbon Dioxide 34.1 H Anion Gap 9.62 BUN 13.7 Creatinine 1.40 H Estimated GFR (MDRD) 68.00 BUN/Creatinine Ratio 9.78 Glucose 100.3 Calcium 9.6 Total Bilirubin 0.4 AST 31 ALT 35 Alkaline Phosphatase 73 Total Creatine Kinase 294 H CK-MB (CK-2) 1.2 CK-MB (CK-2) % 0.4000 Total Protein 7.71 Albumin 4.6 Globulin 3.11 Albumin/Globulin Ratio 1.47 Urine Color Urine Clarity Urine pH Ur Specific [place] Urine Protein Urine Glucose (UA) Urine Ketones Urine Blood Urine Nitrite Urine Bilirubin Urine Urobilinogen Ur Leukocyte Esterase Urine Microscopic WBC Ur Squamous Epith Cells Urine Mucus Influ A Molecular Assay Negative by naat Influ B Molecular Assay Negative by naat 11/01/17 16:13 WBC RBC Hgb Hct MCV MCH MCHC RDW Coeff of Randy Plt Count Immature Gran % (Auto) Neut % (Auto) Lymph % (Auto) [place] % (Auto) Eos % (Auto) Baso % (Auto) Immature Gran # (Auto) Neut # (Auto) Lymph # (Auto) [place] # (Auto) Eos # (Auto) Baso # (Auto) ESR Sodium Potassium Chloride Carbon Dioxide Anion Gap BUN Creatinine Estimated GFR (MDRD) BUN/Creatinine Ratio Glucose Calcium Total Bilirubin AST ALT Alkaline Phosphatase Total Creatine Kinase CK-MB (CK-2) CK-MB (CK-2) % Total Protein Albumin Globulin Albumin/Globulin Ratio Urine Color Yellow Urine Clarity Clear Urine pH 6.0 Ur Specific [place] 1.025 Urine Protein Trace Urine Glucose (UA) Negative Urine Ketones Negative Urine Blood Negative Urine Nitrite Negative Urine Bilirubin Negative Urine Urobilinogen 0.2 Ur Leukocyte Esterase Trace Urine Microscopic WBC 10-20 Ur Squamous Epith Cells Not present Urine Mucus 2+ Influ A Molecular Assay Influ B Molecular Assay Orders Category Date Time Status EKG-(ED ONLY) Stat CARDIO 11/01/17 15:00 Ordered CBC W/ AUTO DIFF Stat LAB 11/01/17 15:11 Completed CMP [COMPREHENSIVE METABOLIC PANEL] Stat LAB 11/01/17 15:11 Completed CPK [CREATINE KINASE] Stat LAB 11/01/17 15:11 Completed ESR Stat LAB 11/01/17 15:11 Completed FLU A & B MOLECULAR [FLU A/B MOLECULAR] Stat LAB 11/01/17 15:55 Completed RAPID STREP SCREEN [MOLECULAR GROUP A STREP] Stat LAB 11/01/17 15:55 Completed UA [URINALYSIS C & S IF INDICATED] Stat LAB 11/01/17 16:13 Completed URINE CULTURE Stat LAB 11/01/17 16:13 Received URINE DRUG SCREEN (RAPID FOR ED) [DRUG SCREEN, URINE, LAB 11/01/17 16:13 Received RAPID] Stat CHEST, 1V AP ONLY Stat RADS 11/01/17 15:[address] SINUSES W/O CONTRAST Stat RADS 11/01/17 15:01 Completed Vital Signs: Temp Pulse Resp BP Pulse Ox 11/01/17 13:55 98.7 F 103 H 20 133/95 H 98 Departure - Departure Time of Disposition: 17:15 Disposition: HOME SELF-CARE Discharge Problem: Sinusitis, Cervical (neck) region somatic dysfunction Instructions: Sinusitis (ED), Warm Compress or Soak (ED), Cervical Strain (ED) Condition: Good Pt referred to PMD for follow-up: Yes (Sarina at clinic) IPMP verified?: No Additional Instructions: Use warm moist heat to sinuses and neck daily Allergies/Adverse Reactions: Allergies No Known Allergies Allergy (Verified 11/01/17 13:58) Home Medications: Ambulatory Orders Tamsulosin HCl [Flomax] 0.4 mg PO DAILY 09/06/17 Amoxicillin/Potassium Clav [Augmentin 875-125 mg Tab] 1 tab PO Q12HR #20 tablet 11/01/17 Prednisone 10 mg PO DAILY #20 tablet 11/01/17 Additional Information: Secondarily before discharge patient complains of pain in rt side of neck and shoulder -prev eval outpt by PCP Dr Gonzalez- Imaging neg per pt Evid sl spasm muscle/alleviated by OMM
--- NOTE | 2017-11-01 16:13 | DI ---
EXAM: Single frontal view of the chest HISTORY: Facial pain. COMPARISON: Multiple prior chest x-rays most recent 04/17/2016 FINDINGS: Cardiomediastinal silhouette is normal. There is no pneumothorax or effusion. There is no consolidation, nodule or mass. The osseous structures are unremarkable. IMPRESSION: No acute cardiopulmonary process.
--- NOTE | 2017-11-01 16:20 | CT ---
EXAM: CT PARANASAL SINUSES HISTORY: Sinus pressure TECHNIQUE: CT paranasal sinuses without contrast. Detailed axial sections. Coronal and sagittal re formations. FINDINGS: Compared to 04/17/2016 Frontal sinuses: Clear. Ethmoid sinuses: Mild patchy areas of mucosal thickening bilaterally. Sphenoid sinuses: Clear. Maxillary sinuses: The lower medial aspects of the right cell has moderate mucosal thickening. The left cell is relatively clear. General: No sinus fluid is identified. Nasal septum is minimally deviated toward the right. The in ferior turbinates are hypertrophied. No definite postop changes are seen, correlate with records. M astoid processes are aerated. IMPRESSION: 1. Relatively mild chronic paranasal sinusitis mainly affecting the mid to lower right maxillary sin us and the ethmoid cells. The degree of involvement has slightly improved since previous exam. 2. Unchanged bilateral lower turbinate hypertrophy.
== END 2017-11-01 17:52 | disposition home or self-care (01) ==
LOC: ED 13:55
DX: J32.9 Chronic sinusitis, unspecified (principal); M99.01 Segmental and somatic dysfunction of cervical region
CPT/HCPCS: 36415; 80053; 80306; 81001; 82550; 82553; 85025; 85651; 87086; 87502; 87651; 93005; 93010; 99283

== ENCOUNTER 2018-06-10 20:22 | Emergency (ER) ==
[2018-06-10 20:29] VITALS: TEMP 98.6; BMI 26.6
--- NOTE | 2018-06-10 20:58 | ED.PDOC ---
General ED Provider: Dr. XIOMY HODGES Chief Complaint: Headache Stated Complaint: Combination complaint of migrainous headache and nasal congestion.Patient states he had several sinus procedures but suffers from seasonal exacerbations and even infections.I offered him a CT with sinus bone windows as he did not have a follow up for a long time. Time Seen by Physician: 20:30 Mode of Arrival: Walk-In Information Source: Patient Exam Limitations: No limitations Nursing and Triage Documentation Reviewed and Agree: Yes Does patient meet sepsis criteria?: No System Inflammatory Response Syndrome: Not Applicable Sepsis Protocol: For patient's 13 years and over: Temp is 96.8 and below OR 101 and greater Pulse >90 BPM Resp >20/minute Acutely Altered Mental Status Are patient's symptoms suggestive of a new infection, such as: -Pneumonia -Skin, Soft Tissue -Endocarditis -UTI -Bone, Joint Infection -Implantable Device -Acute Abdominal Infection -Wound Infection -Meningitis -Blood Stream Catheter Infection -Unknown EENT Complaint Exam - Nasal Complaint/Exam Onset/Duration: chronic condition Symptoms Are: Still present Timing: Intermittent Initial Severity: Moderate Current Severity: Moderate Location: Bilateral Aggravating: Reports: None Alleviating: Reports: Position Associated Signs and Symptoms: Reports: Nasal congestion, Sinus pain Related History: Reports: Similar episode Nasal Surgical History: Reports: Sinus Surgery Foreign Body Present: No Septal Hematoma: No Differential Diagnoses: Allergic Rhinitis, Sinusitis Review of Systems - Review Of Systems Constitutional: Reports: Other Eyes: Reports: No symptoms Ears, Nose, Mouth, Throat: Reports: Nose discharge Respiratory: Reports: No symptoms Cardiac: Reports: No symptoms GI: Reports: No symptoms : Reports: No symptoms Musculoskeletal: Reports: No symptoms Skin: Reports: No symptoms Neurological: Reports: No symptoms Endocrine: Reports: No symptoms Hematologic/Lymphatic: Reports: No symptoms All Other Systems: Reviewed and Negative Past Medical History - Past Medical History Previously Healthy: Yes Endocrine: Reports: None Cardiovascular: Reports: Hypertension Respiratory: Reports: None Hematological: Reports: None Gastrointestinal: Reports: None Genitourinary: Reports: Other (prostatitis) Neuro/Psych: Reports: None Musculoskeletal: Reports: None Cancer: Reports: None - Surgical History General Surgical History: Reports: Other (rt bicep repair.) - Family History Family History: Reports: Unknown - Social History Smoking Status: Never smoker Hx Substance Use: No Alcohol Screening: None - Immunizations Tetanus Shot up to Date: Yes Physical Exam - Physical Exam Appearance: Well-appearing Ill-appearing: None Pain Distress: None Eyes: ELLI ENT: Rhinorrhea, Erythema Neck: Supple Respiratory: Airway patent, Breath sounds clear Cardiovascular: RRR, Pulses normal GI/: Soft Musculoskeletal: Normal strength Skin: Warm Neurological: Sensation intact, Motor intact, Alert Psychiatric: Affect appropriate Critical Care Note - Critical Care Note Total Time (mins): 0 Course - Course Vital Signs: Temp Pulse Resp BP Pulse Ox 06/10/18 20:22 98.6 F 91 H 18 166/100 H 96 Departure - Departure Time of Disposition: 21:51 Disposition: HOME SELF-CARE Discharge Problem: Chronic sinusitis of both maxillary sinuses Instructions: Warm Compress or Soak (ED) Condition: Good Pt referred to PMD for follow-up: Yes IPMP verified?: Yes Additional Instructions: Clarithromycin 500 bis x 10 d,Neosynephrine nasal spray bid q nostril for no longer than 2-3 days before 5 days break.Than may repeat the sequence if symptoms persist. Allergies/Adverse Reactions: Allergies No Known Allergies Allergy (Verified 06/10/18 20:27) Disposition Discussed With: Patient, Family
[2018-06-10] MEDS ORDERED: IMITREX SUBCUT STA (21:02)
[2018-06-10] MEDS ORDERED: PREDNISONE PO STA (21:05)
--- NOTE | 2018-06-10 21:22 | CT ---
Exam: CT sinuses without contrast History: Recurrent sinus infection Technique: [address] paranasal sinuses with multiplanar reformations FINDINGS: Minor mucoperiosteal thickening of the right maxillary sinus and ethmoid sinuses. There i s no sinus fluid. Nasal airway is narrowed from mucosal hypertrophy. Draining sinus ostia are bilat erally patent. Normal orbital fat. Normal zygoma and nasal bones. Mastoid air cells and middle ear s are clear. Impression: 1. Minor paranasal sinus mucoperiosteal thickening not significantly changed from 11/01/2017. 2. Mucosal swelling of the nasal airway
[2018-06-10 22:07] VITALS: BP 150/109
== END 2018-06-10 22:07 | disposition home or self-care (01) ==
LOC: ED 20:22
DX: J32.0 Chronic maxillary sinusitis (principal); I10 Essential (primary) hypertension
CPT/HCPCS: 96372; 99283

== ENCOUNTER 2018-06-25 22:52 | Emergency (ER) ==
[2018-06-25 23:05] VITALS: BP 146/77; TEMP 100.8; BMI 26.5
[2018-06-25] MEDS ORDERED: TORADOL IM STA (23:11)
--- NOTE | 2018-06-25 23:49 | DI ---
EXAM: Chest two views HISTORY: Fever FINDINGS: Normal cardiac and mediastinal contours. Normal pulmonary vasculature. Lungs are clear. No significant abnormality of the bony thorax. IMPRESSION: Chest radiograph within normal limits.
--- NOTE | 2018-06-25 23:51 | DI ---
Exam: Left calcaneus two-view History: Heel pain without injury Findings / impression: The calcaneus and subtalar joint appear normal. No obvious hind foot abnormal ity.
--- NOTE | 2018-06-25 23:51 | DI ---
Exam: Right calcaneus two-view History: Heel pain Findings / impression: No bony abnormality of the calcaneus or immediate adjacent tarsals.. Negativ e exam.
--- NOTE | 2018-06-26 00:23 | ED.PDOC ---
General ED Provider: Dr. CASSANDRA WAGNER-ER Chief Complaint: Foot Pain/Injury Stated Complaint: my feet hurt to walk--ada got plantar fasciitis Time Seen by Physician: 00:22 Mode of Arrival: Wheelchair Information Source: Patient Exam Limitations: No limitations Nursing and Triage Documentation Reviewed and Agree: Yes Does patient meet sepsis criteria?: No System Inflammatory Response Syndrome: Not Applicable Sepsis Protocol: For patient's 13 years and over: Temp is 96.8 and below OR 101 and greater Pulse >90 BPM Resp >20/minute Acutely Altered Mental Status Are patient's symptoms suggestive of a new infection, such as: -Pneumonia -Skin, Soft Tissue -Endocarditis -UTI -Bone, Joint Infection -Implantable Device -Acute Abdominal Infection -Wound Infection -Meningitis -Blood Stream Catheter Infection -Unknown Musculoskeletal Complaint Exam - Ankle/Foot Complaint/Exam Location of Injury: Reports: Right, Left, Foot Mechanism of Injury: Reports: No known trauma Onset/Duration: 2 weeks Symptoms Are: Reports: Still present Onset of Pain: Reports: Immediate Initial Severity: Mild Current Severity: Mild Location: Reports: Discrete Character: Reports: Dull, Aching Alleviating: Reports: None Aggravating: Reports: Movement, Weight bearing Able to Bear Weight: Yes Associated Signs and Symptoms: Denies: Swelling, Redness, Bruising, Fever, Weakness, Numbness, Tingling Lower Extremity Findings: Absent: Swelling, Ecchymosis, Abnormal contour, Rotation, Warmth, Tenderness, Limited range of motion Achilles Tendon Abnormality: No Tenderness: Present: Heel Differential Diagnosis: Other Review of Systems - Review Of Systems Constitutional: Reports: No symptoms Eyes: Reports: No symptoms Ears, Nose, Mouth, Throat: Reports: No symptoms Respiratory: Reports: No symptoms Cardiac: Reports: No symptoms GI: Reports: No symptoms : Reports: No symptoms Musculoskeletal: Reports: Muscle pain Skin: Reports: No symptoms Neurological: Reports: No symptoms Endocrine: Reports: No symptoms Hematologic/Lymphatic: Reports: No symptoms All Other Systems: Reviewed and Negative Past Medical History - Past Medical History Previously Healthy: Yes Endocrine: Reports: None Cardiovascular: Reports: Hypertension Respiratory: Reports: None Hematological: Reports: None Gastrointestinal: Reports: None Genitourinary: Reports: Other (prostatitis) Neuro/Psych: Reports: None Musculoskeletal: Reports: None Cancer: Reports: None - Surgical History General Surgical History: Reports: Other (rt bicep repair.) - Family History Family History: Reports: Unknown - Social History Smoking Status: Never smoker Hx Substance Use: No Alcohol Screening: None - Immunizations Tetanus Shot up to Date: Yes Physical Exam - Physical Exam Appearance: Well-appearing, No pain distress, Well-nourished Pain Distress: Mild Eyes: ELLI, EOMI, Conjunctiva clear ENT: Ears normal, Nose normal, Oropharynx normal Neck: Supple Respiratory: Airway patent, Breath sounds clear, Breath sounds equal, Respirations nonlabored Cardiovascular: RRR, Pulses normal, No rub, No murmur GI/: Soft, Nontender, No masses, Bowel sounds normal, No Organomegaly Musculoskeletal: Limited ROM Skin: Warm, Dry, Normal color Neurological: Sensation intact, Motor intact, Reflexes intact, Cranial nerves intact, Alert, Oriented Psychiatric: Affect appropriate, Mood appropriate Interpretation - Radiology Interpretation Radiology Interpretation By: Radiologist Radiology Results: Negative Critical Care Note - Critical Care Note Total Time (mins): 0 Course - Course Hematology/Chemistry: 06/25/18 23:30 06/25/18 23:30 Orders, Labs, Meds: Lab Review 06/25/18 06/25/18 06/25/18 23:30 23:30 23:30 WBC 7.26 RBC 4.66 L Hgb 12.6 L Hct 37.1 L MCV 79.6 L MCH 27.0 MCHC 34.0 RDW Coeff of Randy 13.3 Plt Count 290 Immature Gran % (Auto) 0.6 Neut % (Auto) 71.0 Lymph % (Auto) 16.7 [place] % (Auto) 8.4 Eos % (Auto) 2.9 Baso % (Auto) 0.4 Immature Gran # (Auto) 0.0 Neut # (Auto) 5.2 Lymph # (Auto) 1.2 [place]linger # (Auto) 0.6 Eos # (Auto) 0.2 Baso # (Auto) 0.0 ESR 69 H Sodium 138.4 Potassium 3.38 L Chloride 102.9 Carbon Dioxide 24.2 Anion Gap 14.68 BUN 13.2 Creatinine 0.94 Estimated GFR (MDRD) 108.00 BUN/Creatinine Ratio 14.04 Glucose 136.9 H Lactic Acid Calcium 9.14 Total Bilirubin 0.48 AST 26.1 ALT 24.5 Alkaline Phosphatase 86.7 Total Protein 7.70 Albumin 4.67 Globulin 3.03 Albumin/Globulin Ratio 1.54 Procalcitonin Urine Color Urine Clarity Urine pH Ur Specific [place] Urine Protein Urine Glucose (UA) Urine Ketones Urine Blood Urine Nitrite Urine Bilirubin Urine Urobilinogen Ur Leukocyte Esterase Ur Squamous Epith Cells Amorphous Sediment Influ A Molecular Assay Influ B Molecular Assay 06/25/18 06/25/18 06/25/18 23:30 23:30 23:30 WBC RBC Hgb Hct MCV MCH MCHC RDW Coeff of Randy Plt Count Immature Gran % (Auto) Neut % (Auto) Lymph % (Auto) [place] % (Auto) Eos % (Auto) Baso % (Auto) Immature Gran # (Auto) Neut # (Auto) Lymph # (Auto) [place] # (Auto) Eos # (Auto) Baso # (Auto) ESR Sodium Potassium Chloride Carbon Dioxide Anion Gap BUN Creatinine Estimated GFR (MDRD) BUN/Creatinine Ratio Glucose Lactic Acid 0.91 Calcium Total Bilirubin AST ALT Alkaline Phosphatase Total Protein Albumin Globulin Albumin/Globulin Ratio Procalcitonin 0.06 Urine Color Urine Clarity Urine pH Ur Specific [place] Urine Protein Urine Glucose (UA) Urine Ketones Urine Blood Urine Nitrite Urine Bilirubin Urine Urobilinogen Ur Leukocyte Esterase Ur Squamous Epith Cells Amorphous Sediment Influ A Molecular Assay Negative by naat Influ B Molecular Assay Negative by naat 06/25/18 23:45 WBC RBC Hgb Hct MCV MCH MCHC RDW Coeff of Randy Plt Count Immature Gran % (Auto) Neut % (Auto) Lymph % (Auto) [place] % (Auto) Eos % (Auto) Baso % (Auto) Immature Gran # (Auto) Neut # (Auto) Lymph # (Auto) [place] # (Auto) Eos # (Auto) Baso # (Auto) ESR Sodium Potassium Chloride Carbon Dioxide Anion Gap BUN Creatinine Estimated GFR (MDRD) BUN/Creatinine Ratio Glucose Lactic Acid Calcium Total Bilirubin AST ALT Alkaline Phosphatase Total Protein Albumin Globulin Albumin/Globulin Ratio Procalcitonin Urine Color Yellow Urine Clarity Cloudy Urine pH 7.0 Ur Specific [place] 1.020 Urine Protein Negative Urine Glucose (UA) Negative Urine Ketones Negative Urine Blood Trace-intact Urine Nitrite Negative Urine Bilirubin Negative Urine Urobilinogen 1.0 Ur Leukocyte Esterase Negative Ur Squamous Epith Cells 0-2 Amorphous Sediment 2+ Influ A Molecular Assay Influ B Molecular Assay Orders Category Date Time Status BLOOD CULTURE (ED ONLY) Stat LAB 06/25/18 23:30 Received CBC W/ AUTO DIFF Stat LAB 06/25/18 23:30 Completed COMPREHENSIVE METABOLIC PANEL Stat LAB 06/25/18 23:30 Completed ESR Stat LAB 06/25/18 23:30 Completed FLU A/B MOLECULAR Stat LAB 06/25/18 23:30 Completed LACTIC ACID Stat LAB 06/25/18 23:30 Completed MOLECULAR GROUP A STREP Stat LAB 06/25/18 23:30 Completed PROCALCITONIN Stat LAB 06/25/18 23:30 Completed URINALYSIS C & S IF INDICATED Stat LAB 06/25/18 23:45 Completed Ketorolac Tromethamine [Toradol] MEDS 06/25/18 23:11 Discontinued 60 mg IM ONCE STA CXR [CHEST, 2 VIEWS PA & LAT] Stat RADS 06/25/18 23:09 Completed HEEL, LEFT (CALCANEUS) Stat RADS 06/25/18 23:11 Completed HEEL, RIGHT (CALCANEUS) Stat RADS 06/25/18 23:11 Completed Medications Discontinued Medications Generic Name Dose Route Start Last Admin Trade Name Freq PRN Reason Stop Dose Admin Ketorolac Tromethamine 60 mg 06/25/18 23:11 06/25/18 23:30 Toradol IM 06/25/18 23:12 60 mg ONCE STA Administration Vital Signs: Temp Pulse Resp BP Pulse Ox 06/25/18 22:58 100.8 F H 99 H 16 146/77 H 95 Departure - Departure Time of Disposition: 00:23 Disposition: HOME SELF-CARE Discharge Problem: Plantar fasciitis Instructions: Plantar Fasciitis (ED) Condition: Good Pt referred to PMD for follow-up: Yes IPMP verified?: No Additional Instructions: keep your appt with clinic tomorrow---tylneol #3 q 6hrs prn pain #10--return if temp goes over 101 Allergies/Adverse Reactions: Allergies No Known Allergies Allergy (Verified 06/10/18 20:27) Home Medications: Ambulatory Orders Nifedipine [Nifedipine ER] 60 mg PO DAILY 06/25/18 Disposition Discussed With: Patient, Family
== END 2018-06-26 00:30 | disposition home or self-care (01) ==
LOC: ED 22:52
DX: M72.2 Plantar fascial fibromatosis (principal)
CPT/HCPCS: 36415; 80053; 81001; 83605; 84145; 85025; 85651; 87040; 87502; 87651; 96372; 99283

== ENCOUNTER 2018-07-07 16:25 | Emergency (ER) ==
[2018-07-07 16:33] VITALS: BP 128/85; TEMP 100.6; BMI 25.8
--- NOTE | 2018-07-07 17:06 | ED.PDOC ---
General ED Provider: Dr. XIOMY HODGES Chief Complaint: Weakness Stated Complaint: 38 y old male patient states that he was atthis ER few days past and was apparently evaluated for a plantar fascitis but they could not figure what is wqrong with him.Therefore he says he went to another doctor in [facility] and she did many tests and also did not come up with a diagnosis for him, Now he says he experiences a stiffness in his legs that makes walking barely possible,However he abruptly pick himself up and said 'I am good".I offered him a further work up starting with a CT scan but he refused and left AMA. Time Seen by Physician: 16:40 Mode of Arrival: Wheelchair Information Source: Patient Exam Limitations: No limitations Nursing and Triage Documentation Reviewed and Agree: Yes Does patient meet sepsis criteria?: No System Inflammatory Response Syndrome: Not Applicable Sepsis Protocol: For patient's 13 years and over: Temp is 96.8 and below OR 101 and greater Pulse >90 BPM Resp >20/minute Acutely Altered Mental Status Are patient's symptoms suggestive of a new infection, such as: -Pneumonia -Skin, Soft Tissue -Endocarditis -UTI -Bone, Joint Infection -Implantable Device -Acute Abdominal Infection -Wound Infection -Meningitis -Blood Stream Catheter Infection -Unknown Review of Systems - Review Of Systems Constitutional: Reports: No symptoms All Other Systems: Reviewed and Negative Past Medical History - Past Medical History Previously Healthy: Yes Endocrine: Reports: None Cardiovascular: Reports: Hypertension Respiratory: Reports: None Hematological: Reports: None Gastrointestinal: Reports: None Genitourinary: Reports: Other (prostatitis) Neuro/Psych: Reports: None Musculoskeletal: Reports: None Cancer: Reports: None - Surgical History General Surgical History: Reports: Other (rt bicep repair.) - Family History Family History: Reports: Unknown - Social History Smoking Status: Never smoker Hx Substance Use: No Alcohol Screening: None Physical Exam - Physical Exam Appearance: Well-appearing Critical Care Note - Critical Care Note Total Time (mins): 0 Course - Course Vital Signs: Temp Pulse Resp BP Pulse Ox 07/07/18 16:27 100.6 F H 106 H 20 128/85 96 Departure - Departure Time of Disposition: 17:20 Disposition: AMA Discharge Problem: Plantar fasciitis Condition: Good Pt referred to PMD for follow-up: Yes IPMP verified?: Yes Additional Instructions: Patient was taken by WC to his car and got into the car himself and his drove thecar,Patient decided to leave AMA and refused to be further examined beyond an initial interview, Allergies/Adverse Reactions: Allergies No Known Allergies Allergy (Verified 07/07/18 16:32) Home Medications: Ambulatory Orders Lisinopril [Zestril] 20 mg PO DAILY 07/07/18 Metoprolol Tartrate [Lopressor] 25 mg PO DAILY 07/07/18 Disposition Discussed With: Patient, Family
== END 2018-07-07 17:15 | disposition left against medical advice (07) ==
LOC: ED 16:25
DX: R53.1 Weakness (principal); M72.2 Plantar fascial fibromatosis
CPT/HCPCS: 99284